=== PATIENT | male | born 1990 | race Caucasian/White ===

== ENCOUNTER 2018-02-28 22:35 | Inpatient (IN) | payer SELFPAY ==
[2018-02-28 23:29] LABS: Absolute Lymphocytes (CBC) 1.6 K/uL (0.7-4.9); Absolute Monocytes 0.8 K/uL (0.1-1.3); Absolute Neutrophil 8.3 K/uL (1.8-8.0); Basophils % 0.5 % (0-1.3); Eosinophils % 0.9 % (0-4.4); Hematocrit 45.8 % (39.6-49.0); Lymphocytes % 14.8 % (15.3-44.8); MCH 30.1 pg (27.0-35.0); MCV 89.4 fL (80-100); MPV 8.6 fL (7.6-11.3); Monocytes % 7.5 % (3.3-12.3); RBC Red Blood Cell Count 5.12 M/uL (4.33-5.43)
[2018-02-28 23:33] LABS: Protime INR 1.19
[2018-02-28 23:35] LABS: Bicarbonate 27 mEq/L (21-31); Glucose Level 123 mg/dL (65-120); Potassium 3.4 mEq/L (3.6-5.0); Sodium Level 141 mEq/L (135-145)
[2018-02-28] MEDS ORDERED: NA CHLORIDE 0.9% 1,000 ML ONE (23:38)
[2018-02-28] MEDS ORDERED: ONDANSETRON 4 MG/2 ML VIAL ONE (23:38)
[2018-02-28] MEDS ORDERED: PANTOPRAZOLE 40 MG INJ ONE (23:38)
[2018-02-28 23:41] LABS: ALT/SGPT 13 IU/L (10-60); AST/SGOT 17 IU/L (10-42); Albumin 4.7 g/dL (3.2-5.5); Alkaline Phosphatase 76 IU/L (42-121); BUN Blood Urea Nitrogen 11 mg/dL (6-20); Bilirubin Direct 0.1 mg/dL (0-0.2); Bilirubin Total 0.8 mg/dL (0.3-1.2); Magnesium 1.8 mg/dL (1.8-2.5)
--- NOTE | 2018-03-01 02:07 | EDPHYS ---
Physician Documentation [facility] Name: Todd Cortez Age: 27 yrs Sex: Male : 1990 Arrival Date: 02/28/2018 Time: 22:38 Bed 13 Private MD: ED Physician Saurabh Roman HPI: 02/28 23:00 This 27 yrs old Male presents to ER via Ambulatory with complaints of cp SPITTING BLOOD. 23:00 The patient or guardian reports cough, that is constant, hemoptysis. cp 23:00 Onset: The symptoms/episode began/occurred suddenly, just prior to arrival. Associated cp signs and symptoms: Pertinent positives: shortness of breath, chest tightness. Severity of symptoms: in the emergency department the symptoms have improved mildly. The patient has not experienced similar symptoms in the past. Historical: - Allergies: 22:51 No Known Allergies; bb - Home Meds: 22:51 None [Active]; bb - PMHx: 22:51 None; bb - PSHx: 22:51 None; bb - Immunization history:: Adult Immunizations not up to date. - Social history:: Smoking status: Patient/guardian denies using tobacco, Patient/guardian denies using alcohol, street drugs. ROS: 23:05 Constitutional: Negative for body aches, chills, fever, poor PO intake, weight loss. cp 23:05 Eyes: Negative for injury, pain, redness, and discharge. cp 23:05 ENT: Negative for drainage from ear(s), ear pain, sore throat, difficulty swallowing, difficulty handling secretions. 23:05 Neck: Negative for pain with movement, pain at rest, stiffness. 23:05 Cardiovascular: Positive for chest tightness, Negative for edema, palpitations. 23:05 Respiratory: Positive for cough, hemoptysis, shortness of breath. 23:05 Abdomen/GI: Negative for abdominal pain, nausea and vomiting, black/tarry stool, rectal bleeding. 23:05 Back: Negative for pain at rest, pain with movement, radiated pain. 23:05 Skin: Negative for cellulitis, rash. 23:05 Neuro: Negative for altered mental status, dizziness, headache, syncope, weakness. 23:05 All other systems are negative. Exam: 23:12 Constitutional: The patient appears in no acute distress, alert, awake, cp non-diaphoretic, non-toxic, well developed, well nourished. 23:12 Head/Face: Normocephalic, atraumatic. Eyes: Pupils equal round and reactive to light, cp extra-ocular motions intact. Lids and lashes normal. Conjunctiva and sclera are non-icteric and not injected. Cornea within normal limits. Periorbital areas with no swelling, redness, or edema. ENT: Nares patent. No nasal discharge, no septal abnormalities noted. Tympanic membranes are normal and external auditory canals are clear. Oropharynx with no redness, swelling, or masses, exudates, or evidence of obstruction, uvula midline. Mucous membranes moist. Neck: Trachea midline, no thyromegaly or masses palpated, and no cervical lymphadenopathy. Supple, full range of motion without nuchal rigidity, or vertebral point tenderness. No Meningismus. Chest/axilla: Normal chest wall appearance and motion. Nontender with no deformity. No lesions are appreciated. 23:12 Cardiovascular: Rate: normal, Rhythm: regular, Pulses: Pulses are 2+ in right radial artery and left radial artery. Edema: is not appreciated, JVD: is not appreciated. 23:12 Respiratory: the patient does not display signs of respiratory distress, Respirations: normal, no use of accessory muscles, no retractions, no splinting, no tachypnea, labored breathing, is not present, Breath sounds: are clear throughout, no decreased breath sounds, no stridor, no wheezing. 23:12 Abdomen/GI: Inspection: abdomen appears normal, Bowel sounds: active, all quadrants, Palpation: abdomen is soft and non-tender, in all quadrants, rebound tenderness, is not appreciated, voluntary guarding, is not appreciated, involuntary guarding, is not appreciated. 23:12 Back: pain, is absent, ROM is normal. 23:12 Skin: cellulitis, is not appreciated, no rash present. 23:12 Neuro: Orientation: to person, place \T\ time. Mentation: is normal, Cerebellar function: is grossly normal, Motor: moves all fours, strength is normal, Sensation: no obvious gross deficits. Vital Signs: 22:51 BP 148 / 97; Pulse 92; Resp 20 S; Temp 98(O); Pulse Ox 93% on R/A; Weight 54.43 kg (R); bb Height 5 ft. 6 in. (167.64 cm) (R); Pain 0/10; 03/01 00:13 BP 121 / 74; Pulse 72; Resp 17 S; Pulse Ox 97% on R/A; jd3 01:07 BP 128 / 72; Pulse 70; Resp 17 S; Pulse Ox 97% on R/A; Pain 0/10; jd3 02:04 BP 133 / 76; Pulse 87; Resp 17 S; Pulse Ox 98% on R/A; jd3 03:40 BP 129 / 80; Pulse 81; Resp 17 S; Pulse Ox 99% on R/A; jd3 02/28 22:51 Body Mass Index 19.37 (54.43 kg, 167.64 cm) bb MDM: 02/28 22:52 Patient medically screened. cp 23:30 Differential diagnosis: bronchitis, URI, pulmonary mass, pulmonary embolism. cp 03/01 02:00 ED course: vRad report negative for pulmonary embolism. Noted innumerable scattered cp pulmonary masses and nodules. 02:02 Data reviewed: vital signs, nurses notes, lab test result(s), EKG, radiologic studies, cp CT scan, plain films. 02:02 Test interpretation: by ED physician or midlevel provider: ECG, plain radiologic cp studies. 02/28 23:00 Order name: Basic Metabolic Panel; Complete Time: 00:08 cp 03/01 01:06 Interpretation: Normal except: K 3.4; GLUC 123. 02/28 23:00 Order name: CBC with Diff; Complete Time: 00:08 cp 03/01 00:08 Interpretation: Normal except: CARLOS% 76.3; LYM% 14.8; NEUT A 8.3. 02/28 23:00 Order name: LFT's; Complete Time: 00:08 cp 03/01 01:06 Interpretation: Normal except: TP 9.0; GLOB 4.3. cp 02/28 23:00 Order name: Magnesium; Complete Time: 00:08 cp 02/28 23:00 Order name: PT-INR; Complete Time: 00:08 cp 03/01 01:06 Interpretation: PT 14.1; Reviewed. 02/28 23:00 Order name: Ptt, Activated; Complete Time: 00:08 cp 02/28 22:54 Order name: XRAY Chest (1 view) 02/28 23:00 Order name: EKG; Complete Time: 23:01 cp 02/28 23:00 Order name: Cardiac monitoring; Complete Time: 23:10 cp 02/28 23:00 Order name: Type And Screen; Complete Time: 01:06 cp 03/01 01:06 Interpretation: Reviewed. cp 03/01 00:11 Order name: CT Chest For PE Angio cp 02/28 23:00 Order name: EKG - Nurse/Tech; Complete Time: 23:10 cp 02/28 23:00 Order name: IV Saline Lock; Complete Time: 23:10 cp 02/28 23:00 Order name: Labs collected and sent; Complete Time: 23:10 cp 02/28 23:00 Order name: O2 Per Protocol; Complete Time: 23:10 cp 02/28 23:00 Order name: O2 Sat Monitoring; Complete Time: 23:10 cp Administered Medications: 02/28 23:26 Drug: NS 0.9% 1000 ml Route: IV; Rate: 1 bolus; Site: right antecubital; jd3 03/01 00:20 Follow up: Response: No adverse reaction; IV Status: Completed infusion; IV Intake: jd3 1000ml 02/28 23:26 Drug: ProTONIX 40 mg Route: IVP; Site: right antecubital; jd3 03/01 00:20 Follow up: Response: No adverse reaction [facility] 02/28 23:26 Drug: Zofran 4 mg Route: IVP; Site: right antecubital; jd3 03/01 00:20 Follow up: Response: No adverse reaction j Disposition: 05:18 Co-signature as Attending Physician, Saurabh Roman MD. pkze Disposition: 03/01/18 02:07 Hospitalization ordered by Robb Macario for Observation. Preliminary diagnosis are Malignant neoplasm of bronchus and lung - Multiple, bilateral, Hemoptysis. - Bed requested for Telemetry/MedSurg (observation). - Status is Observation. jd3 - Condition is Stable. - Problem is new. - Symptoms have improved. UTI on Admission? No Signatures: Dispatcher [employer] EDMS Saurabh Roman MD MD pkLena Alarcon, RN RN Alexander Couch PA PA cp Garcia, Cindy, RN RN cg Davies, Jonathon, RN RN jd3
--- NOTE | 2018-03-01 02:07 | ER ---
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 Transition of care: patient was not received from another setting of care. Onset of symptoms was February 28, 2018. Care prior to arrival: None. 22:49 Method Of Arrival: Ambulatory bb 22:49 Acuity: LIDIA 2 bb Historical: - Allergies: 22:51 No Known Allergies; bb - Home Meds: 22:51 None [Active]; bb - PMHx: 22:51 None; bb - PSHx: 22:51 None; bb - Immunization history:: Adult Immunizations not up to date. - Social history:: Smoking status: Patient/guardian denies using tobacco, Patient/guardian denies using alcohol, street drugs. Screenin:51 Abuse screen: Denies threats or abuse. Denies injuries from another. Nutritional lp1 screening: No deficits noted. Tuberculosis screening: No symptoms or risk factors identified. Fall Risk None identified. Assessment: 23:15 General: Appears in no apparent distress. Behavior is calm, cooperative. Pain: Denies lp1 pain. Neuro: Level of Consciousness is awake, alert, obeys commands, Oriented to person, place, time, situation. Cardiovascular: Capillary refill < 3 seconds in bilateral fingers Patient's skin is warm and dry. Rhythm is sinus rhythm. Respiratory: Airway is patent Trachea midline Respiratory effort is even, Respiratory pattern is regular, symmetrical, Breath sounds are clear bilaterally. GI: Abdomen is flat. : No signs and/or symptoms were reported regarding the genitourinary system. EENT: Throat is clear with gag reflex present. Derm: Skin is pink, warm \T\ dry. Musculoskeletal: Circulation, motion, and sensation intact. 03/01 00:13 Reassessment: Patient appears in no apparent distress at this time. Patient and/or jd3 family updated on plan of care and expected duration. Pain level reassessed. Patient is alert, oriented x 3, equal unlabored respirations, skin warm/dry/pink. pt sitting in bed talking with family, even and unlabored respirations, pt reported feeling better Patient states feeling better. 01:08 Reassessment: Patient appears in no apparent distress at this time. Patient and/or jd3 family updated on plan of care and expected duration. Pain level reassessed. Patient is alert, oriented x 3, equal unlabored respirations, skin warm/dry/pink. 02:04 Reassessment: Patient appears in no apparent distress at this time. Patient and/or jd3 family updated on plan of care and expected duration. Pain level reassessed. Patient is alert, oriented x 3, equal unlabored respirations, skin warm/dry/pink. 03:05 Reassessment: Patient appears in no apparent distress at this time. Patient and/or jd3 family updated on plan of care and expected duration. Pain level reassessed. Patient is alert, oriented x 3, equal unlabored respirations, skin warm/dry/pink. Vital Signs: 02/28 22:51 BP 148 / 97; Pulse 92; Resp 20 S; Temp 98(O); Pulse Ox 93% on R/A; Weight 54.43 kg (R); bb Height 5 ft. 6 in. (167.64 cm) (R); Pain 0/10; 03/01 00:13 BP 121 / 74; Pulse 72; Resp 17 S; Pulse Ox 97% on R/A; jd3 01:07 BP 128 / 72; Pulse 70; Resp 17 S; Pulse Ox 97% on R/A; Pain 0/10; jd3 02:04 BP 133 / 76; Pulse 87; Resp 17 S; Pulse Ox 98% on R/A; jd3 03:40 BP 129 / 80; Pulse 81; Resp 17 S; Pulse Ox 99% on R/A; jd3 02/28 22:51 Body Mass Index 19.37 (54.43 kg, 167.64 cm) bb ED Course: 02/28 22:38 Patient arrived in ED. al2 22:50 Triage completed. bb 22:51 Arm band placed on Patient placed in an exam room, on a stretcher, on monitor technician, bb on pulse oximetry. EKG completed in triage. Results shown to MD. Family accompanied patient. 22:52 Alexander Vaz PA is PHCP. cp 22:52 Saurabh Roman MD is Attending Physician. cp 22:54 Alisa Castro, RN is Primary Nurse. lp1 23:11 Inserted saline lock: 18 gauge in right in left antecubital area, using aseptic mw1 technique. 23:14 X-ray completed. Portable x-ray completed in exam room. Patient tolerated procedure la2 well. 23:15 XRAY Chest (1 view) In Process Unspecified. EDMS 23:15 Patient has correct armband on for positive identification. Placed in gown. Bed in low lp1 position. monitor technician on. Pulse ox on. NIBP on. 04 00:[address] via wheelchair. bq 00:52 CT completed. Patient tolerated procedure well. Patient moved back from CT. bq 01:16 CT Chest For PE Angio In Process Unspecified. EDMS 02:04 Robb Macario MD is Hospitalizing Provider. cp 03:41 No provider procedures requiring assistance completed. Patient admitted, IV remains in jd3 place. Administered Medications: 02/28 23:26 Drug: NS 0.9% 1000 ml Route: IV; Rate: 1 bolus; Site: right antecubital; jd3 03/01 00:20 Follow up: Response: No adverse reaction; IV Status: Completed infusion; IV Intake: jd3 1000ml 02/28 23:26 Drug: ProTONIX 40 mg Route: IVP; Site: right antecubital; jd3 03/01 00:20 Follow up: Response: No adverse reaction jd3 02/28 23:26 Drug: Zofran 4 mg Route: IVP; Site: right antecubital; jd3 03/01 00:20 Follow up: Response: No adverse reaction jd3 Intake: 00:20 IV: 1000ml; Total: 1000ml. jd3 Outcome: 02:07 Decision to Hospitalize by Provider. cp 03:50 Admitted to Med/surg accompanied by nurse, via wheelchair, room 208, with chart, Report jd3 called to Audra ROBERTS 03:50 Condition: stable 03:50 Instructed on the need for admit, Demonstrated understanding of instructions. 03:55 Patient left the ED. jd3 Signatures: Dispatcher [employer] EDMS Dianna Roldan Brenda, RN RN bb Alisa Castro, RN RN lp1 Alexander Vaz PA PA cp Waits, Phillip mw1 Celeste Wick2 Jerman Pearce RN RN jd3 Kamini, María Elena moreno2
[2018-03-01] MEDS ORDERED: ONDANSETRON 4 MG/2 ML VIAL IV PRN (02:45)
[2018-03-01] MEDS ORDERED: MORPHINE 4 MG/ML SYR IV PRN ×2 (02:45→07:48)
[2018-03-01] MEDS ORDERED: NA CHLORIDE 0.9% 1,000 ML IV SCH (03:00)
[2018-03-01] MEDS ORDERED: ALBUTEROL 2.5 MG/3 ML NEB SOL NEB SCH (03:00)
[2018-03-01 05:46] LABS: Absolute Lymphocytes (CBC) 1.4 K/uL (0.7-4.9); Absolute Monocytes 0.8 K/uL (0.1-1.3); Absolute Neutrophil 7.5 K/uL (1.8-8.0); Basophils % 0.2 % (0-1.3); Eosinophils % 0.3 % (0-4.4); Hematocrit 40.3 % (39.6-49.0); Lymphocytes % 14.4 % (15.3-44.8); MCH 30.3 pg (27.0-35.0); MCV 88.7 fL (80-100); MPV 8.5 fL (7.6-11.3); Monocytes % 8.3 % (3.3-12.3); RBC Red Blood Cell Count 4.54 M/uL (4.33-5.43)
[2018-03-01 06:26] VITALS: BMI 19.3
--- NOTE | 2018-03-01 07:28 | P.HP ---
Certification for Inpatient Patient admitted to: Inpatient With expected LOS: >2 Midnights Patient will require the following post-hospital care: None Practitioner: I am a practitioner with admitting privileges, knowledge of patient current condition, hospital course, and medical plan of care. Services: Services provided to patient in accordance with Admission requirements found in Title 42 Section 412.3 of the Code of Federal Regulations Patient History Date of Service: 03/01/18 Reason for admission: Metastatic lung cancer History of Present Illness: Patient is a 27-year-old gentleman who was visiting [facility]. He started having persisting cough and had a mild to since. This occurred once again and he asked his brother to bring him into the hospital. Patient denies any medical issues. He has not lost weight. He does not have a poor appetite. He denies having any symptoms of weakness. On arrival to the emergency room patient was worked up in had a CT of the chest performed. This revealed metastatic lung disease. Unable the diagnose the primary site. Will do a CT of the abdomen and pelvis and further evaluate. Will give pulmonary consultation as patient may need biopsy. Allergies No Known Allergies Allergy (Verified 03/01/18 04:06) Home Medications: NK [No Home Meds] 03/01/18 - Past Medical/Surgical History Diabetic: No -: More with cervical spine disease -: none - Family History Mother Notes: none Father Medical History: Diabetes - Social History Smoking Status: Never smoker Alcohol use: No CD- Drugs: No Caffeine use: Yes Place of Residence: Home Review of Systems 10-point ROS is otherwise unremarkable Physical Examination - Vital Signs Temperature: 98 F Blood Pressure: 129/80 Pulse: 81 Respirations: 17 Pulse Ox (%): 98 - Physical Exam General: Alert, In no apparent distress, Oriented x3 HEENT: Atraumatic, PERRLA, Mucous membr. moist/pink, EOMI, Sclerae nonicteric Neck: Supple, 2+ carotid pulse no bruit, No LAD, Without JVD or thyroid abnormality Respiratory: Clear to auscultation bilaterally, Normal air movement Cardiovascular: Regular rate/rhythm, Normal S1 S2, No murmurs Gastrointestinal: Normal bowel sounds, Soft and benign, Non-distended, No tenderness Musculoskeletal: No clubbing, No swelling, No tenderness Integumentary: No rashes Neurological: Normal gait, Normal speech, Normal strength at 5/5 x4 extr, Normal tone, Sensation intact, Cranial nerves 3-12 intact, Normal affect Lymphatics: No axilla or inguinal lymphadenopathy - Studies Laboratory Data (last 24 hrs) 02/28/18 23:00: PT 14.1 H, INR 1.19, APTT 30.4 02/28/18 23:00: WBC 10.9, Hgb 15.4, Hct 45.8, Plt Count 354 02/28/18 23:00: Sodium 141, Potassium 3.4 L, BUN 11, Creatinine 0.93, Glucose 123 H, Magnesium 1.8, Total Bilirubin 0.8, AST 17, ALT 13, Alkaline Phosphatase 76 Assessment & Plan - Problems (Diagnosis) (1) Metastatic cancer to lung of unknown cell type Current Visit: Yes Status: Acute (2) Hemoptysis Current Visit: Yes Status: Acute - Plan Plan: 1. CT abdomen pelvis 2. Pulmonary consultation 3. H&H 4. Monitor labs closely 5. Strict blood pressure and blood sugar control 6. GI and DVT prophylaxis Discharge Plan: Home Plan to discharge in: Greater than 2 days - Advance Directives Does patient have a Living Will: No Does patient have a Durable POA for Healthcare: No - Code Status/Comfort Care Code Status Assessed: Yes Code Status: Full Code Critical Care: No Time Spent Managing PTS Care (In Minutes): 50
[2018-03-01] MEDS ORDERED: IPRATROPIUM BROM 0.5MG/2.5ML NEB SCH (08:00)
[2018-03-01 08:26] LABS: Urine Appearance CLEAR; Urine Bilirubin NEGATIVE (NEG); Urine Blood NEGATIVE (NEG); Urine Color YELLOW; Urine Glucose NEGATIVE (NEG); Urine Protein NEGATIVE (NEG); Urine Specific Gravity >=1.030 (1.005-1.030); Urine Urobilinogen 0.2 mg/dL (0.2-1.0)
[2018-03-01 08:38] LABS: Urine Microscopic Reflex NO UMIC
--- NOTE | 2018-03-01 08:50 | RAD REPORT ---
EXAM DESCRIPTION: CT - Chest For Pe Angio - 03/01/2018 1:16 am CLINICAL HISTORY: hemoptysis COMPARISON: None. TECHNIQUE: Dynamically enhanced axial 3 mm thick images of the chest were obtained during administra tion of <100> mL Isovue 370 IV contrast. Coronal and oblique reconstruction images were generated and reviewed. Exam utilizes a protocol for optimal evaluation of pulmonary arterial tree.A preliminary r eport was generated by [employer] [facility] and reviewed prior to this dictation All CT scans are performed using dose optimization technique as appropriate and may include automated exposure control or mA/KV adjustment according to patient size. FINDINGS: A pulmonary embolus is not seen. A thoracic aortic aneurysm is not noted. A pleural effusion is not seen. A pericardial effusion is not seen. There are many bilateral pulmonary nodules varying in size from a few millimeters to 3.1 centimeters. A small amount of debris is present within a right lower lobe bronchus. Several anterior mediastinal lymph nodes are present measuring up to 2 centimeter short axis. Mild hi lar lymphadenopathy is present. IMPRESSION: Negative for a pulmonary embolism. Multiple, bilateral pulmonary nodules probably representing metastatic disease. The primary may be te sticle, bowel or kidneys. Lymphoma is another consideration Mediastinal lymphadenopathy likely represents additional disease. There is also mild hilar lymphadeno isabel
[2018-03-01] MEDS ORDERED: CEFTRIAXONE 1 GM/NS 50 ML 1 GM/50 ML BAG IV SCH (09:00)
[2018-03-01] MEDS ORDERED: CEFTRIAXONE/SWI 1gm 1 GM/10 ML SYR IV SCH (09:00)
--- NOTE | 2018-03-01 09:30 | RAD REPORT ---
EXAM DESCRIPTION: Dominik Single View02/28/2018 11:15 pm CLINICAL HISTORY: cough COMPARISON: none FINDINGS: Multiple, bilateral pulmonary nodules are present. The heart is normal size IMPRESSION: Multiple, bilateral pulmonary nodules may represent metastatic disease
--- NOTE | 2018-03-01 10:51 | P.CNS ---
Date of Consult: 03/01/18 Reason for Consult: Hemoptysis normal CT scan Chief Complaint: Hemoptysis History of Present Illness: Patient is 27 years of age previously healthy no history of any medical problems admitted with sudden onset of hemoptysis he has some associated shortness of breath chest tightness was a found to have bilateral opacities on his CT scan denies any GI or complaints no history of fever weight loss chest pain patient is never smoked he works in the construction industry Allergies No Known Allergies Allergy (Verified 03/01/18 04:06) Home Medications: NK [No Home Meds] 03/01/18 - Past Medical/Surgical History Diabetic: No -: More with cervical spine disease -: none - Family History Mother Notes: none Father Medical History: Diabetes - Social History Alcohol use: No CD- Drugs: No Caffeine use: Yes Place of Residence: Home Review of Systems 10-point ROS is otherwise unremarkable Physical Examination Temp Pulse Resp BP Pulse Ox 98.3 F 96 H 16 114/56 L 96 03/01/18 08:00 03/01/18 08:00 03/01/18 08:00 03/01/18 08:00 03/01/18 08:00 General: Alert, In no apparent distress, Oriented x3 HEENT: Atraumatic Neck: Supple, JVD not distended Respiratory: Clear to auscultation bilaterally Cardiovascular: No edema, Regular rate/rhythm Gastrointestinal: Normal bowel sounds, Soft and benign Musculoskeletal: No clubbing Integumentary: No rashes, No breakdown Laboratory Data (last 24 hrs) 02/28/18 23:00: PT 14.1 H, INR 1.19, APTT 30.4 02/28/18 23:00: WBC 10.9, Hgb 15.4, Hct 45.8, Plt Count 354 02/28/18 23:00: Sodium 141, Potassium 3.4 L, BUN 11, Creatinine 0.93, Glucose 123 H, Magnesium 1.8, Total Bilirubin 0.8, AST 17, ALT 13, Alkaline Phosphatase 76 - Problems (1) Hemoptysis Current Visit: Yes Status: Acute Plan: Patient is a 27-year-old man admitted with sudden onset of hemoptysis no prior medical history of proceeding symptoms of fever or weight loss basically denies any other complaints this occurred rather sudden in onset CT scan shows bilateral opacities chemistries and CBC are all unremarkable he denies any GI complaints urinalysis is also negative if this cancer the most likely source his embryonic border ECG alpha-fetoprotein CT scan of the abdomen pelvis is pending there is no obvious post plan to do a bronchoscopy discussed with the patient risks and benefits
--- NOTE | 2018-03-01 12:43 | EKG ---
Test Date: 2018-02-28 Test Time: 22:49:48 Informatics Application Analyst: WYATT MEASUREMENT RESULTS: Intervals: Rate: 86 MD: 128 QRSD: 86 QT: 352 QTc: 421 [place]: P: 81 MD: 128 QRS: 85 T: 48 INTERPRETIVE STATEMENTS: Normal sinus rhythm Normal ECG No previous ECG available for comparison Electronically Signed On 03-01-18 12:42:38 CDT by Lam Pagan
[2018-03-02 05:17] LABS: Absolute Lymphocytes (CBC) 1.7 K/uL (0.7-4.9); Absolute Monocytes 0.8 K/uL (0.1-1.3); Basophils % 0.4 % (0-1.3); Eosinophils % 3.7 % (0-4.4); Hematocrit 41.3 % (39.6-49.0); Lymphocytes % 21.3 % (15.3-44.8); MCH 30.1 pg (27.0-35.0); MCV 89.6 fL (80-100); MPV 8.5 fL (7.6-11.3); Monocytes % 10.2 % (3.3-12.3); RBC Red Blood Cell Count 4.61 M/uL (4.33-5.43)
[2018-03-02] MEDS ORDERED: ALBUTEROL 2.5 MG/3 ML NEB SOL NEB PRN (08:10)
--- NOTE | 2018-03-02 10:05 | RAD REPORT ---
EXAM DESCRIPTION: CT - Abdomen Pelvis W Contrast - 03/02/2018 9:51 am CLINICAL HISTORY: Metastatic lung carcinoma, unknown primary COMPARISON: CT chest March 01 TECHNIQUE: Biphasic, helical CT imaging of the abdomen and pelvis was performed following 100 ml non -ionic IV contrast. Oral contrast was given. All CT scans are performed using dose optimization technique as appropriate and may include automated exposure control or mA/KV adjustment according to patient size. FINDINGS: Multiple lung base pulmonary nodules are present detailed on separate prior day CT chest r eport. The liver, spleen, and pancreas show no suspicious findings. Gallbladder and biliary tree are also wi thout suspicious finding. Symmetric renal function is seen with no hydronephrosis or suspicious renal mass. No dilated bowel loops or bowel wall thickening. No bowel mass or acute GI process identifiable. Narr owing in the sigmoid colon is believed to be a peristalsis artifact. No free air, free fluid or infla mmatory stranding. No hernia, mass or bulky lymphadenopathy. The urinary bladder is without signific ant finding. No adrenal abnormality. Testicles are only partially imaged. CT examination is not adequ ate for exclusion of a seminoma or testicular primary mass. No suspicious bony findings. IMPRESSION: No mass, lymphadenopathy or other suspicious findings of the abdomen or pelvis. Sigmoid peristalsis artifact is seen without a primary GI process identifiable. Testicles are only partially imaged on this examination and this examination is not adequate for excl usion of seminoma or other testicle primary mass.
[2018-03-02] MEDS ORDERED: GLYCOPYRROLATE 0.2 MG/ML SYR ONE (11:13)
[2018-03-02] MEDS ORDERED: Phenylephrine HCl 10 MG/ML 1 ML VIAL ONE (11:13)
[2018-03-02] MEDS ORDERED: LIDOCAINE 4% TOP SOLUTION ONE (11:13)
[2018-03-02] MEDS ORDERED: LIDOCAINE VISCOUS 2% SOLN 15 ML UDC ONE (11:15)
[2018-03-02] MEDS ORDERED: LIDOCAINE 4% TOP SOLUTION TOP ONE ×2 (11:40→12:00)
[2018-03-02] MEDS ORDERED: Ringers Lactate 1,000 ML IV ONE (11:54)
[2018-03-02] MEDS ORDERED: Phenylephrine HCl 10 MG/ML 1 ML VIAL IH ONE (12:00)
[2018-03-02] MEDS ORDERED: GLYCOPYRROLATE 0.2 MG/ML SYR IV ONE (12:00)
--- NOTE | 2018-03-02 12:07 | P.PN ---
Subjective Date of Service: 03/02/18 Primary Care Provider: Dr. Manzo Chief Complaint: Hemoptysis Subjective: Doing well Physical Examination - Vital Signs Temperature: 99 F Blood Pressure: 135/72 Pulse: 65 Respirations: 16 Pulse Ox (%): 96 - Physical Exam General: Alert, In no apparent distress, Oriented x3, Cooperative HEENT: Atraumatic, Mucous membr. moist/pink Neck: Supple Respiratory: Clear to auscultation bilaterally, Normal air movement Cardiovascular: Normal pulses, Regular rate/rhythm Gastrointestinal: Normal bowel sounds, Soft and benign, Non-distended, No tenderness, No masses, No rebound, No guarding Musculoskeletal: No erythema, No tenderness, No warmth Integumentary: No tenderness/swelling, No erythema, No warmth, No cyanosis Neurological: Normal speech, Normal strength at 5/5 x4 extr, Normal tone, Normal affect Lymphatics: No axilla or inguinal lymphadenopathy External genitalia: No edema, No lesions, No masses, Non-tender - Studies Medications List Reviewed: Yes Assessment & Plan - Problems (Diagnosis) (1) Hemoptysis Onset Date: 03/02/18 Current Visit: Yes Status: Acute Plan: Patient no longer with hemopytosis. Patient will have bronchoscopy today. Will discuss case further with pulmonology. (2) Metastatic cancer to lung of unknown cell type Onset Date: 03/02/18 Current Visit: Yes Status: Suspected Plan: Patient with multiple nodules to the lung. Etiology unknown. Patient to have bronchoscopy today. (3) Pulmonary nodules Current Visit: Yes Status: Acute Plan: Continue with above plan of care. Suspect metastatic disease. Primary unknown. (4) Mediastinal adenopathy Current Visit: Yes Status: Acute Plan: Continue with above plan of care. Will discuss further with pulmonology. Discharge Plan: Home Plan to discharge in: 24 Hours Time Spent Managing Pts Care (In Minutes): 55
[2018-03-02] MEDS ORDERED: LIDOCAINE 1% MPF 30 ML VIAL SQ ONE (12:30)
[2018-03-02] MEDS ORDERED: PROPOFOL 200 MG/20 ML VIAL IV ONE (12:33)
[2018-03-02] MEDS ORDERED: LIDOCAINE 1% MPF 5 ML VIAL ONE (12:33)
--- NOTE | 2018-03-02 12:36 | P.OP ---
Date of Service: 03/02/18 (Endoscopy transbronchial biopsy and BAL) Findings and Operative Technique Patient is 27 years of age admitted to this hospital with hemoptysis acute onset no other preceding complaints nose no systemic complaints no past medical history Iqra CT scan shows bilateral lung masses hence the reason for bronchoscopy After obtaining informed consent from the patient he was premedicated by anesthesia Finding normal vocal cords normal trachea reading was a visible particular in the right lower lobe superior segment there was a clot multiple biopsies were taken from the right lower lobe superior segment including BAL patient has slight episode of desaturation postoperative chest x-ray has been ordered Specimens sent stat for analysis path and micro
--- NOTE | 2018-03-02 13:00 | RAD REPORT ---
EXAM DESCRIPTION: RAD - FLUORO-GUIDE FOR BRONCH UPT1HR - 03/02/2018 12:53 pm FINDINGS: Right chest fluoroscopy performed. Multiple portable C-arm views were obtained during fluoroscopic assisted bronchoscopic guided biopsy. No suspicious or unexpected finding.
--- NOTE | 2018-03-02 13:55 | RAD REPORT ---
EXAM DESCRIPTION: RAD - Chest Single View - 03/02/2018 1:44 pm CLINICAL HISTORY: Status post bronchoscopy. COMPARISON: 02/28/2018 FINDINGS: Portable technique limits examination quality. Airspace opacity is present in both lung bases, greater on the right. Most likely, this is related to atelectasis or aspiration. If the patient demonstrates hemoptysis, pulmonary hemorrhage may also be considered. No postprocedure pneumothorax. The heart is upper limit normal size.
[2018-03-02] MEDS: ACETAMINOPHEN 500 MG TAB PO PRN (17:35)
[2018-03-02] MEDS ORDERED: IBUPROFEN 400 MG TAB PO PRN (18:33)
[2018-03-03 05:21] LABS: Absolute Lymphocytes (CBC) 1.1 K/uL (0.7-4.9); Absolute Neutrophil 9.4 K/uL (1.8-8.0); Basophils % 0.3 % (0-1.3); Eosinophils % 3.5 % (0-4.4); Hematocrit 39.4 % (39.6-49.0); Lymphocytes % 9.4 % (15.3-44.8); MCH 30.3 pg (27.0-35.0); MCV 89.1 fL (80-100); MPV 8.6 fL (7.6-11.3); Monocytes % 8.2 % (3.3-12.3); RBC Red Blood Cell Count 4.42 M/uL (4.33-5.43)
[2018-03-03 05:57] LABS: BUN Blood Urea Nitrogen 10 mg/dL (6-20); Bicarbonate 27 mEq/L (21-31); Glucose Level 82 mg/dL (65-120); Magnesium 1.9 mg/dL (1.8-2.5); Potassium 4.1 mEq/L (3.6-5.0); Sodium Level 139 mEq/L (135-145)
[2018-03-03 11:19] LABS: Alpha Fetoprotein-Tumor Marker 1.8 ng/mL (<6.1)
--- NOTE | 2018-03-03 16:03 | P.PN ---
Subjective Date of Service: 03/03/18 Primary Care Provider: Dr. Manzo Chief Complaint: Hemoptysis Subjective: Doing well Physical Examination - Vital Signs Temperature: 100.1 F Blood Pressure: 104/63 Pulse: 80 Respirations: 20 Pulse Ox (%): 96 - Physical Exam General: Alert, In no apparent distress, Oriented x3, Cooperative HEENT: Atraumatic, Mucous membr. moist/pink Neck: Supple, No Thyromegaly Respiratory: Clear to auscultation bilaterally, Normal air movement Cardiovascular: Normal pulses, Regular rate/rhythm Gastrointestinal: Normal bowel sounds, Soft and benign, Non-distended Musculoskeletal: No erythema, No tenderness, No warmth Integumentary: No erythema, No warmth, No cyanosis Neurological: Normal speech, Normal strength at 5/5 x4 extr, Normal tone, Normal affect Lymphatics: No axilla or inguinal lymphadenopathy - Studies Medications List Reviewed: Yes Assessment & Plan - Problems (Diagnosis) (1) Hemoptysis Onset Date: 03/02/18 Current Visit: Yes Status: Acute Plan: Patient status post bronchoscopy. Pathology reports inconclusive. Pulmonology recommends radiology assisted fine needle aspiration of lung mass to determine pathology. Will discuss with radiology to see if this can be done. Anticipate this to be done tomorrow. (2) Metastatic cancer to lung of unknown cell type Onset Date: 03/02/18 Current Visit: Yes Status: Suspected Plan: Patient with multiple nodules to the lung. Etiology unknown. Continue with above plan of care. (3) Pulmonary nodules Current Visit: Yes Status: Acute Plan: Continue with above plan of care. Suspect metastatic disease. Primary unknown. (4) Mediastinal adenopathy Current Visit: Yes Status: Acute Plan: Continue with above plan of care. Discharge Plan: Home Plan to discharge in: 48 Hours Time Spent Managing Pts Care (In Minutes): 55
[2018-03-03] MEDS: ACETAMINOPHEN 500 MG TAB PO PRN (16:39)
[2018-03-04 05:13] LABS: Absolute Lymphocytes (CBC) 1.5 K/uL (0.7-4.9); Basophils % 0.3 % (0-1.3); Eosinophils % 5.1 % (0-4.4); Hematocrit 40.3 % (39.6-49.0); Lymphocytes % 14.7 % (15.3-44.8); MCH 30.6 pg (27.0-35.0); MPV 8.3 fL (7.6-11.3); Monocytes % 9.7 % (3.3-12.3); RBC Red Blood Cell Count 4.58 M/uL (4.33-5.43)
[2018-03-04 05:39] LABS: BUN Blood Urea Nitrogen 11 mg/dL (6-20); Bicarbonate 29 mEq/L (21-31); Glucose Level 97 mg/dL (65-120); Sodium Level 138 mEq/L (135-145)
--- NOTE | 2018-03-04 08:56 | P.PN ---
Subjective Date of Service: 03/04/18 Primary Care Provider: Dr. Manzo Chief Complaint: Hemoptysis Subjective: Doing well Physical Examination - Vital Signs Temperature: 100.0 F Blood Pressure: 105/65 Pulse: 74 Respirations: 20 Pulse Ox (%): 96 - Physical Exam General: Alert, In no apparent distress, Oriented x3, Cooperative HEENT: Atraumatic Neck: Supple Respiratory: Clear to auscultation bilaterally, Normal air movement Cardiovascular: Normal pulses, Regular rate/rhythm Gastrointestinal: Normal bowel sounds, Soft and benign, Non-distended, No tenderness, No masses, No rebound, No guarding Musculoskeletal: No erythema, No tenderness, No warmth Integumentary: No tenderness/swelling, No erythema, No warmth, No cyanosis Neurological: Normal speech, Normal strength at 5/5 x4 extr, Normal tone, Normal affect - Studies Medications List Reviewed: Yes Assessment & Plan - Problems (Diagnosis) (1) Hemoptysis Onset Date: 03/02/18 Current Visit: Yes Status: Acute Plan: Patient status post bronchoscopy. Pathology reports inconclusive. Pulmonology recommends radiology assisted fine needle aspiration of lung mass to determine pathology. This will be done today. Risks and benefits addressed. (2) Metastatic cancer to lung of unknown cell type Onset Date: 03/02/18 Current Visit: Yes Status: Suspected Plan: Patient with multiple nodules to the lung. Etiology unknown. Continue with above plan of care. (3) Pulmonary nodules Current Visit: Yes Status: Acute Plan: Continue with above plan of care. Suspect metastatic disease. Primary unknown. (4) Mediastinal adenopathy Current Visit: Yes Status: Acute Plan: Continue with above plan of care. Discharge Plan: Home Plan to discharge in: 24 Hours Time Spent Managing Pts Care (In Minutes): 55
[2018-03-04] MEDS ORDERED: NA CHLORIDE 0.9% 1,000 ML ONE ×2 (10:06→10:07)
[2018-03-04] MEDS ORDERED: DIPHENHYDRAMINE 50 MG/ML VIAL ONE (10:10)
[2018-03-04] MEDS ORDERED: FENTANYL CITR 100 MCG/2 ML ONE ×2 (10:11)
[2018-03-04] MEDS ORDERED: MIDAZOLAM HCL 2 MG/2 ML INJ ONE (10:11)
[2018-03-04] MEDS ORDERED: FLUMAZENIL 0.1 MG/ML (5 mL VIAL) IV ONE (10:11)
[2018-03-04] MEDS ORDERED: NALOXONE 0.4 MG/ML VIAL ONE (10:11)
[2018-03-04] MEDS ORDERED: HYDROCODONE/APAP 7.5/325 MG TAB PO PRN (12:26)
--- NOTE | 2018-03-04 12:43 | RAD REPORT ---
EXAM DESCRIPTION: CT - Lung Biopsy Perc w/CT - 03/04/2018 12:01 pm CLINICAL HISTORY: Lung nodule. COMPARISON: March 01, 2018. TECHNIQUE: The risks, benefits and alternatives to the procedure were explained to the patient and i nformed consent obtained. The patient was pre-medicated with 2 milligrams of Versed and 125 micrograms fentanyl intravenously. Vital signs were monitored by a nurse. Conscious sedation was performed. The patient was placed prone into the CT scanner. The skin and subcutaneous tissues were anesthetized with Lidocaine. Under CT guidance an 18-gauge needle was placed into the periphery of the 22 millim eter nodule within the left lower lobe. Through this a 19-gauge needle was placed and two 1 centimete r core specimens obtained and given to pathology. The post biopsy images do not demonstrate a pneumothorax. Ill-defined surrounding opacities within the left lower lobe represent a small amount of hemorrhage. IMPRESSION: 1. Two core biopsies of a left lower lobe nodule. 2. A pneumothorax is not present
--- NOTE | 2018-03-04 15:19 | RAD REPORT ---
[facility]AM DES[facility]04/2018 3:14 pm CLINICAL HISTORY: Left lung biopsy COMPARISON: March 02, 2018 FINDINGS: A pneumothorax is not present status post left lower lobe biopsy
[2018-03-05 05:11] LABS: Absolute Lymphocytes (CBC) 1.5 K/uL (0.7-4.9); Absolute Monocytes 0.8 K/uL (0.1-1.3); Absolute Neutrophil 6.8 K/uL (1.8-8.0); Basophils % 0.3 % (0-1.3); Eosinophils % 4.4 % (0-4.4); Hematocrit 39.7 % (39.6-49.0); Lymphocytes % 15.8 % (15.3-44.8); MCH 30.4 pg (27.0-35.0); MCV 88.4 fL (80-100); MPV 8.2 fL (7.6-11.3); Monocytes % 8.6 % (3.3-12.3); RBC Red Blood Cell Count 4.49 M/uL (4.33-5.43)
[2018-03-05 06:00] LABS: BUN Blood Urea Nitrogen 9 mg/dL (6-20); Bicarbonate 28 mEq/L (21-31); Glucose Level 87 mg/dL (65-120); Sodium Level 134 mEq/L (135-145)
[2018-03-05 06:01] LABS: Magnesium 1.8 mg/dL (1.8-2.5)
[2018-03-05] MEDS ORDERED: MAGNESIUM SULFATE 1 gm IVPB 1 GM/100 ML BAG IV ONE (07:35)
--- NOTE | 2018-03-05 08:27 | RAD REPORT ---
EXAM DESCRIPTION: Dominik Pa And Lat (2 Views)03/05/2018 6:24 am CLINICAL HISTORY: Cough COMPARISON: March 04 FINDINGS: A pneumothorax is not seen. Bilateral pulmonary nodules are again demonstrated. A small a mount of hemorrhage within the left lower lobe has mostly resolved. The heart is normal size
[2018-03-05 09:52] VITALS: BP 123/70; TEMP 99.8
--- NOTE | 2018-03-05 11:33 | P.DS ---
Admission Date: 03/01/18 Discharge Date: 03/05/18 Primary Care Provider: Dr. Manzo Disposition: ROUTINE DISCHARGE Discharge Condition: GOOD Reason for Admission: Hemoptysis Consultations: Pulmonary-Dr. Montgomery Procedures: Radiology assisted CT-guided fine-needle aspiration of lung the nodule Bronchoscopy: Lavage done. Pathology showed no malignant cells. Bronchial tissue and blood identified. CT scan: FINDINGS: A pulmonary embolus is not seen. A thoracic aortic aneurysm is not noted. A pleural effusion is not seen. A pericardial effusion is not seen. There are many bilateral pulmonary nodules varying in size from a few millimeters to 3.1 centimeters. A small amount of debris is present within a right lower lobe bronchus. Several anterior mediastinal lymph nodes are present measuring up to 2 centimeter short axis. Mild hilar lymphadenopathy is present. IMPRESSION: Negative for a pulmonary embolism. Multiple, bilateral pulmonary nodules probably representing metastatic disease. The primary may be testicle, bowel or kidneys. Lymphoma is another consideration Mediastinal lymphadenopathy likely represents additional disease. There is also mild hilar lymphadenopathy - Problems (1) Hemoptysis Onset Date: 03/02/18 Current Visit: Yes Status: Acute (2) Metastatic cancer to lung of unknown cell type Onset Date: 03/02/18 Current Visit: Yes Status: Suspected (3) Pulmonary nodules Current Visit: Yes Status: Acute (4) Mediastinal adenopathy Current Visit: Yes Status: Acute Brief History of Present Illness: 27-year-old male presented emergency room with cough and hemopytosis. The patient was evaluated in the emergency room. CT scan showed multiple bilateral pulmonary nodules with lymphadenopathy. The patient was admitted for further evaluation. Hospital Course: The patient was admitted and evaluated by pulmonology for in the hemoptysis. During the hospital stay this resolved. CT of the abdomen and pelvis was unremarkable. Pulmonology recommended bronchoscopy with lavage. This was done. Lavage showed no malignant cells. Blood cells and bronchial cells were noted. This was inconclusive. Therefore a CT guided radiology assisted fine- needle lung biopsy was done. Patient tolerated procedure. No pneumothorax was identified afterwards. Pathology shows inflammatory and atypical cells. This is suspicious for infectious versus inflammatory disease. Malignancy still in the differential. Further analysis will be sent to [facility]. Final results will come in 1 week. At discharge, the patient will follow up with pulmonology within 1 week to go over results. Patient is to monitor for further hemoptysis. If this persists he is to contact pulmonology for possible steroid treatment. 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 He is not fitted with a mask at work. No work until he is cleared by pulmonology after final results of lung biopsy. Vital Signs/Physical Exam: Temp Pulse Resp BP Pulse Ox 99.8 F 84 20 123/70 96 03/05/18 08:00 03/05/18 08:00 03/05/18 08:00 03/05/18 08:00 03/05/18 08:00 General: Alert, In no apparent distress, Oriented x3, Cooperative HEENT: Atraumatic, Mucous membr. moist/pink Neck: Supple Respiratory: Clear to auscultation bilaterally, Normal air movement Cardiovascular: Normal pulses, Regular rate/rhythm Gastrointestinal: Normal bowel sounds, Soft and benign, Non-distended, No tenderness, No masses, No rebound, No guarding Musculoskeletal: No erythema, No tenderness, No warmth Integumentary: No tenderness/swelling, No erythema, No warmth, No cyanosis Neurological: Normal speech, Normal strength at 5/5 x4 extr, Normal tone, Normal affect Laboratory Data at Discharge: WBC 9.5 K/uL (4.3-10.9) 03/05/18 04:42 Hgb 13.6 g/dL (13.6-17.9) 03/05/18 04:42 Hct 39.7 % (39.6-49.0) 03/05/18 04:42 Plt Count 308 K/uL (152-406) 03/05/18 04:42 PT 14.1 SECONDS (9.5-12.5) H 02/28/18 23:00 INR 1.19 02/28/18 23:00 APTT 30.4 SECONDS (24.3-36.9) 02/28/18 23:00 Sodium 134 mEq/L (135-145) L 03/05/18 04:42 Potassium 4.0 mEq/L (3.6-5.0) 03/05/18 04:42 BUN 9 mg/dL (6-20) 03/05/18 04:42 Creatinine 0.91 mg/dL (0.61-1.24) 03/05/18 04:42 Glucose 87 mg/dL (65-120) 03/05/18 04:42 Magnesium 1.8 mg/dL (1.8-2.5) 03/05/18 04:42 Total Bilirubin 0.8 mg/dL (0.3-1.2) 02/28/18 23:00 AST 17 IU/L (10-42) 02/28/18 23:00 ALT 13 IU/L (10-60) 02/28/18 23:00 Alkaline Phosphatase 76 IU/L (42-121) 02/28/18 23:00 Home Medications: NK [No Home Meds] 03/01/18 Patient Discharge Instructions: 1. Patient will need to follow up with pulmonology in 1 week to follow up this hospitalization. 2. Patient presented with hemoptysis. This resolved. Patient found to have bilateral pulmonary nodules. Bronchoscopy was done. Pathology inconclusive. CT-guided radiology assisted lung biopsy done. Pathology shows inflammatory and atypical cells. Final results will come in 1 week. No pneumothorax was identified after procedure. Patient will follow up with pulmonology within 1 week to go over results. Infectious/inflammatory is suspected versus malignancy. 3. Patient is to monitor for further hemoptysis. If this persists he is to contact pulmonology for possible steroid treatment. 4. No work until he is cleared by pulmonology after final results of lung biopsy. Diet: Regular Activity: Ad lovely Followup: Ty Montgomery MD [ACTIVE - CAN ADMIT] - 1 Week (Call for appointment) Time spent managing pt's care (in minutes): 55
[2018-03-05 12:47] VITALS: O2SAT 98
== END 2018-03-05 12:30 | disposition home or self-care (01) | DRG 167 ==
LOC: ER 22:35 → ERHOLD 03-01 02:09 → 2ND 03-01 03:38
PROVIDERS: ADMIT Hospitalist; ATTEND Family Medicine
PROC: 0BBJ3ZX Excision of Left Lower Lung Lobe, Percutaneous Approach, Diagnostic (ICD-10-PCS; 2018-03-01)
PROC: 0BB68ZX Excision of Right Lower Lobe Bronchus, Via Natural or Artificial Opening Endoscopic, Diagnostic (ICD-10-PCS; 2018-03-02)
PROC: 0B9F8ZX Drainage of Right Lower Lung Lobe, Via Natural or Artificial Opening Endoscopic, Diagnostic (ICD-10-PCS; principal; 2018-03-02 12:00)
DX: C34.90 Malignant neoplasm of unspecified part of unspecified bronchus or lung (principal); R04.2 Hemoptysis; R59.0 Localized enlarged lymph nodes; R91.8 Other nonspecific abnormal finding of lung field
CPT/HCPCS: 32405; 36415; 71045; 71046; 71275; 74177; 76000; 77012; 80048; 80076; 81003; 82105; 82378; 82962; 83735; 84702; 85025; 85610; 85730; 86850; 86900; 86901; 87015; 87102; 87116; 87206; 88108; 88305; 88312; 88333; 93005; 94640; 96361; 96374; 96375; 99285; C9113; J0696; J2250; J2310; J2370; J2405; J3010; J3475; J7030; Q9967

== ENCOUNTER 2024-10-27 18:21 | Emergency (ER) | payer SELFPAY ==
[2024-10-27 19:02] LABS: SARS-CoV-2 Antigen CONTROL BLUE LINE VIS/BG OK; SARS-CoV-2 Antigen Rapid Res Negative (Negative)
--- NOTE | 2024-10-27 20:05 | RAD REPORT ---
EXAMINATION: ONE VIEW CHEST XR CLINICAL INDICATION: Congestion;Dyspnea TECHNIQUE: Frontal chest projection is submitted. Examination is limited by patient positioning and t echnique. COMPARISON: 03/05/2018 FINDINGS: Small opacities present medial left lung base likely pneumonia. The heart is normal in size. No displ aced fractures identified. IMPRESSION: Medial left lung base pneumonia.
[2024-10-27] MEDS ORDERED: predniSONE 20 MG TAB ONE (20:54)
[2024-10-27] MEDS ORDERED: IPRATROPIUM BROM 0.5MG/2.5ML ONE (20:54)
[2024-10-27] MEDS ORDERED: ALBUTEROL 2.5 MG/3 ML NEB SOL ONE (20:54)
[2024-10-27] MEDS ORDERED: CEFTRIAXONE 1000 MG/VIAL ONE (21:14)
[2024-10-27] MEDS ORDERED: AZITHROMYCIN 250 MG TAB ONE (21:14)
[2024-10-27] MEDS ORDERED: LIDOCAINE 1% MPF 2 ML AMPULE ONE (21:15)
--- NOTE | 2024-10-27 21:38 | ER ---
Nurse's Notes [facility] Name: Todd Cortez Age: 34 yrs Sex: Male : 1990 Arrival Date: 10/27/2024 Time: 18:21 Bed 12 Private MD: Diagnosis: Pneumonia, unspecified organism Presentation: 10/27 18:30 Chief complaint: Cough, congestion, fever, body aches, and SOB x 1 week. Coronavirus hb screen: At this time, the client does not indicate any symptoms associated with coronavirus-19. Ebola Screen: No symptoms or risks identified at this time. Initial Sepsis Screen: Does the patient meet any 2 criteria? No. Patient's initial sepsis screen is negative. Does the patient have a suspected source of infection? No. Patient's initial sepsis screen is negative. Risk Assessment: Do you want to hurt yourself or someone else? Patient reports no desire to harm self or others. Onset of symptoms was October 21, 2024. 18:30 Method Of Arrival: Ambulatory hb 18:30 Acuity: LIDIA 3 hb Triage Assessment: 21:57 General: Appears in no apparent distress. comfortable, Behavior is calm, cooperative. cm10 Pain: Denies pain. Neuro: No deficits noted. Level of Consciousness is awake, alert, obeys commands, Oriented to person, place, time, situation, Appropriate for age. Respiratory: No deficits noted. Reports cough that is Airway is patent Respiratory effort is even, unlabored, Respiratory pattern is regular, symmetrical. Derm: No deficits noted. Skin is healthy with good turgor. Musculoskeletal: No deficits noted. Range of motion: intact in all extremities. Historical: - Allergies: 18:32 No Known Allergies; hb - Home Meds: 18:32 None [Active]; hb - PMHx: 18:32 Hodgkin's Lymphoma; hb - PSHx: 18:32 Lung resection - Left; hb - Immunization history:: Adult Immunizations up to date. - Infectious Disease History:: Denies. - Social history:: Smoking status: Patient denies any tobacco usage or history of. Screenin:26 [facility] ED Fall Risk Assessment (Adult) History of falling in the last 3 months, ha1 including since admission No falls in past 3 months (0 pts) Confusion or Disorientation No (0 pts) Intoxicated or Sedated No (0 pts) Impaired Gait No (0 pts) Mobility Assist Device Used No (0 pt) Altered Elimination No (0 pt) Score/Fall Risk Level 0 - 2 = Low Risk Oriented to surroundings, Maintained a safe environment, Educated pt \T\ family on fall prevention, incl call for assistance when getting out of bed. Abuse screen: Denies threats or abuse. Denies injuries from another. Nutritional screening: No deficits noted. Tuberculosis screening: No symptoms or risk factors identified. Assessment: 21:25 Reassessment: Patient and/or family updated on plan of care and expected duration. Pain ha1 level reassessed. Patient is alert, oriented x 3, equal unlabored respirations, skin warm/dry/pink. Patient denies pain at this time. Vital Signs: 18:30 BP 146 / 89; Pulse 77; Resp 18; Temp 98.7; Pulse Ox 99% on R/A; Weight 52.16 kg; Height hb 5 ft. 6 in. ; Pain 0/10; 21:26 BP 120 / 81; Pulse 85; Resp 18 S; Pulse Ox 100% on R/A; ha1 21:56 BP 134 / 71; Pulse 98; Resp 16; Pulse Ox 97% ; cm10 18:30 Body Mass Index 18.56 (52.16 kg, 167.64 cm) hb 18:30 Pain Scale: Adult hb ED Course: 18:24 Patient arrived in ED. mg5 18:32 Triage completed. hb 18:33 Arm band placed on. hb 18:39 Nadia Wynn FNP-C is [facility]. kb 18:39 Alexander Liu MD is Attending Physician. kb 19:58 Chest Single View XRAY In Process Unspecified. EDMS 21:56 Patient has correct armband on for positive identification. Provided Education on: cm10 Follow-up instructions. Pulse ox on. NIBP on. 21:56 No provider procedures requiring assistance completed. Patient did not have IV access cm10 during this emergency room visit. Administered Medications: 21:23 Drug: predniSONE PO 40 mg PO once Route: PO; ha1 21:57 Follow up: Response: No adverse reaction cm10 21:23 Drug: Albuterol Inhalation 2.5 mg Inhalation once Route: Inhalation; ha1 21:23 Drug: Ipratropium Inhalation Aerosol 0.5 mg Inhalation once Route: Inhalation; ha1 21:23 Drug: Rocephin (cefTRIAXone) IM 1 grams IM once Route: IM; Site: right ventrogluteal; ha1 21:57 Follow up: Response: No adverse reaction cm10 21:23 Drug: AZITHromycin PO 500 mg PO once Route: PO; ha1 21:57 Follow up: Response: No adverse reaction cm10 Medication: 21:57 VIS not applicable for this client. cm10 Outcome: 21:37 Discharge ordered by MD. english 21:56 Discharged to home ambulatory, with family, 10 21:56 Condition: good 21:56 Discharge instructions given to patient, family, Instructed on discharge instructions, follow up and referral plans. medication usage, Demonstrated understanding of instructions, follow-up care, medications, Prescriptions given X 3, :57 Patient left the ED. cm10 Signatures: Dispatcher [employer] EDMS Nadia Wynn, DYEING MACHINE FEEDER-C DYEING MACHINE FEEDER-CkFrancy Marshall RN RN hb Ayala, Heidy, RN RN ha1 Ca Ibarra RN RN cm10 Sandy Lincoln 5
--- NOTE | 2024-10-27 21:38 | EDPHYS ---
Physician Documentation [facility] Name: Todd Cortez Age: 34 yrs Sex: Male : 1990 Arrival Date: 10/27/2024 Time: 18:21 Bed 12 Private MD: ED Physician Alexander Liu HPI: 10/27 20:00 This 34 yrs old Male presents to ER via Ambulatory with complaints of Shortness Of kb Breath, Cough, Fever. 20:00 Pt is a 34 year old male who presents for headache, fever, cough, fatigue, malaise that kb started one week ago. TMAX 103. Concerned about pneumonia. Denies runny nose, nasal congestion, n/v/d. . Historical: - Allergies: 18:32 No Known Allergies; hb - Home Meds: 18:32 None [Active]; hb - PMHx: 18:32 Hodgkin's Lymphoma; hb - PSHx: 18:32 Lung resection - Left; hb - Immunization history:: Adult Immunizations up to date. - Infectious Disease History:: Denies. - Social history:: Smoking status: Patient denies any tobacco usage or history of. ROS: 20:02 Constitutional: As per HPI kb Exam: 21:38 Constitutional: This is a well developed, well nourished patient who is awake, alert, kb and in no acute distress. Head/Face: Normocephalic, atraumatic. ENT: Moist Mucous membranes Cardiovascular: Regular rate Abdomen/GI: Soft, non-tender. No distention Skin: Warm, dry with normal turgor. Normal color. MS/ Extremity: Pulses equal, no cyanosis. Neurovascular intact. Full, normal range of motion. Neuro: Awake and alert, GCS 15, oriented to person, place, time, and situation. 21:38 Respiratory: the patient does not display signs of respiratory distress, Respirations: normal, Breath sounds: wheezing: expiratory that is mild, is heard in the left lower lobe and left posterior lower lobe, Vital Signs: 18:30 BP 146 / 89; Pulse 77; Resp 18; Temp 98.7; Pulse Ox 99% on R/A; Weight 52.16 kg; Height hb 5 ft. 6 in. ; Pain 0/10; 21:26 BP 120 / 81; Pulse 85; Resp 18 S; Pulse Ox 100% on R/A; ha1 21:56 BP 134 / 71; Pulse 98; Resp 16; Pulse Ox 97% ; cm10 18:30 Body Mass Index 18.56 (52.16 kg, 167.64 cm) hb 18:30 Pain Scale: Adult hb MDM: 18:39 Medical Screening Exam initiated kb 21:38 Differential diagnosis: flu, covid, uri, pneumonia. Data reviewed: vital signs, nurses kb notes. Test considered but Not performed: Labs: cbc, cmp considered but pt is well appearing, resp even and unlabored, vitals wnl. Pt in agreement with outpatient antibiotics and follow up. Will return for worsening symptoms. Historians other than the Patient: Spouse/Significant Other: spouse. Counseling: I had a detailed discussion with the patient and/or guardian regarding the historical points, exam findings, and any diagnostic results supporting the discharge/admit diagnosis, lab results, radiology results, the need for outpatient follow up, a family practitioner, to return to the emergency department if symptoms worsen or persist or if there are any questions or concerns that arise at home. 10/27 18:33 Order name: Flu; Complete Time: 19:15 hb 10/27 18:33 Order name: SARS RAPID; Complete Time: 19:03 hb 10/27 18:33 Order name: Chest Single View XRAY; Complete Time: 20:06 hb Administered Medications: 21:23 Drug: predniSONE PO 40 mg PO once Route: PO; ha1 21:57 Follow up: Response: No adverse reaction cm10 21:23 Drug: Albuterol Inhalation 2.5 mg Inhalation once Route: Inhalation; ha1 21:23 Drug: Ipratropium Inhalation Aerosol 0.5 mg Inhalation once Route: Inhalation; ha1 21:23 Drug: Rocephin (cefTRIAXone) IM 1 grams IM once Route: IM; Site: right ventrogluteal; ha1 21:57 Follow up: Response: No adverse reaction cm10 21:23 Drug: AZITHromycin PO 500 mg PO once Route: PO; ha1 21:57 Follow up: Response: No adverse reaction cm10 Disposition Summary: 10/27/24 21:37 Discharge Ordered Notes: Location: Home kb Condition: Stable kb Diagnosis - Pneumonia, unspecified organism kb Followup: kb - With: Emergency Department - When: As needed - Reason: Worsening of condition Followup: kb - With: Private Physician - When: 2 - 3 days - Reason: Recheck today's complaints, Continuance of care, Re-evaluation by your physician Discharge Instructions: - Discharge Summary Sheet kb - Community-Acquired Pneumonia, Adult, [id number] kb Forms: - Medication Reconciliation Form kb - Antibiotic Education kb - Prescription Opioid Use kb - Patient Portal Instructions kb - Leadership Thank You Letter kb Prescriptions: - albuterol sulfate 90 mcg/actuation Inhalation HFA Aerosol Inhaler - inhale 2 inhalation INHALATION route every 4-6 hours As needed; 1 Unspecified; kb Refills: 0, Product Selection Permitted - Prednisone 20 mg Oral Tablet - take 1 tablet ORAL route once daily for 5 days; 5 tablet; Refills: 0, Product kb Selection Permitted - Zithromax 500 mg Oral Tablet - take 1 tablet ORAL route once daily for 5 days; 5 tablet; Refills: 0, Product kb Selection Permitted Signatures: Dispatcher [employer] Nadia Alba, QUALITY ASSURANCE TECH-C RAY-Francy Gan RN RN Alia Knight RN RN ha1 Ca Ibarra RN cm10
[2024-10-27 22:37] VITALS: TEMP 98.7
[2024-10-27 22:40] VITALS: BP 134/71; O2SAT 97
== END 2024-10-27 21:57 | disposition home or self-care (01) ==
LOC: ER 18:21
DX: J18.9 Pneumonia, unspecified organism (principal); Z11.52 Encounter for screening for COVID-19
CPT/HCPCS: 36415; 71045; 87804; 87811; 96372; 99285; J0696; J7512; J7613; J7644

== ENCOUNTER 2024-11-20 17:23 | Emergency (ER) | payer SELFPAY ==
--- NOTE | 2024-11-20 19:10 | RAD REPORT ---
EXAM: Chest Pa And Lat (2 Views) HISTORY: COUGH COMPARISON: 10/27/2024 FINDINGS: LUNGS/PLEURA: The lungs are clear. No pleural effusions or pneumothorax. No pulmonary edema. MEDIASTINUM: The mediastinal silhouette is within normal limits. CARDIAC: The cardiac silhouette is within normal limits. UPPER ABDOMEN: No significant abnormality. BONES: No acute fracture. LINES/TUBES/OTHER: N/A IMPRESSION: No evidence of acute cardiopulmonary disease.
--- NOTE | 2024-11-20 19:13 | EDPHYS ---
Physician Documentation [facility] Name: Todd Cortez Age: 34 yrs Sex: Male : 1990 Arrival Date: 11/20/2024 Time: 17:23 Bed 11 Private MD: ZULEMA Physician Alexander Liu HPI: 11/20 17:47 This 34 yrs old Male presents to ER via Ambulatory with complaints of Chest Tightness. cp 17:47 The patient or guardian reports cough. cp 17:47 Onset: The symptoms/episode began/occurred last month, since . cp 17:47 Associated signs and symptoms: Pertinent positives: intermittent chest tightness, cp Pertinent negatives: chest pain, fever, vomiting, hemoptysis, weight loss. Historical: - Allergies: 17:31 No Known Allergies; iw - Home Meds: 17:31 inhaler, assist devices, accessories [Active]; iw - PMHx: 17:31 Hodgkin's Lymphoma; iw - PSHx: 17:31 Lung resection - Left; iw - Immunization history:: Adult Immunizations not up to date. - Infectious Disease History:: Denies. - Social history:: Smoking status: Patient denies any tobacco usage or history of. ROS: 17:50 Constitutional: Negative for body aches, chills, fever, poor PO intake, cp 17:50 Eyes: Negative for injury, pain, redness, and discharge, cp 17:50 ENT: Negative for drainage from ear(s), ear pain, sore throat, difficulty swallowing, difficulty handling secretions, 17:50 Cardiovascular: Negative for chest pain, edema, palpitations, 17:50 Respiratory: Positive for cough, Negative for hemoptysis, shortness of breath, wheezing, 17:50 Abdomen/GI: Negative for abdominal pain, vomiting, diarrhea, constipation, 17:50 Neuro: Negative for altered mental status, dizziness, headache, weakness, 17:50 All other systems are negative, Exam: 17:55 Constitutional: The patient appears in no acute distress, alert, awake, cp non-diaphoretic, non-toxic, well developed, well nourished, 17:55 Head/Face: Normocephalic, atraumatic. cp 17:55 Eyes: Periorbital structures: appear normal, Conjunctiva: normal, no exudate, no injection, Sclera: no appreciated abnormality, Lids and lashes: appear normal, bilaterally, 17:55 ENT: External ear(s): are unremarkable, Nose: is normal, Mouth: Lips: moist, Oral mucosa: pink and intact, moist, Posterior pharynx: Airway: no evidence of obstruction, patent, 17:55 Chest/axilla: Inspection: normal, Palpation: is normal, no crepitus, no tenderness, 17:55 Cardiovascular: Rate: normal, Rhythm: regular, Edema: is not appreciated, JVD: is not appreciated, 17:55 Respiratory: the patient does not display signs of respiratory distress, Respirations: normal, no use of accessory muscles, no retractions, labored breathing, is not present, Breath sounds: are clear throughout, no decreased breath sounds, no stridor, no wheezing, 17:55 Abdomen/GI: Inspection: abdomen appears normal, Palpation: abdomen is soft and non-tender, in all quadrants, 17:55 Back: pain, is absent, ROM is normal, 17:55 Neuro: Orientation: to person, place \T\ time. Mentation: is normal, Vital Signs: 17:30 BP 123 / 73; Pulse 82; Resp 16; Temp 98(TE); Pulse Ox 98% on R/A; Weight 49.9 kg; iw Height 5 ft. 6 in. ; Pain 0/10; 19:27 BP 121 / 71; Pulse 84; Resp 18; Pulse Ox 99% ; vc1 17:30 Body Mass Index 17.76 (49.90 kg, 167.64 cm) iw 17:30 Pain Scale: Adult iw MDM: 17:35 Medical Screening Exam initiated bucky 18:00 Differential Diagnosis: Bronchitis Influenza Pneumonia Other carcinoma, pulmonary cp embolism, GERD. 19:10 Independent interpretation of the following test(s) in the Emergency Department X-Ray: cp My interpretation is images of chest negative for focal pneumonia. 19:12 Data reviewed: vital signs, nurses notes, radiologic studies, plain films, and as a cp result, I will discharge patient. 19:12 Care significantly affected by the following chronic conditions: Cancer. Counseling: I cp had a detailed discussion with the patient and/or guardian regarding the historical points, exam findings, and any diagnostic results supporting the discharge/admit diagnosis, radiology results, the need for outpatient follow up, a family practitioner, to return to the emergency department if symptoms worsen or persist or if there are any questions or concerns that arise at home. 11/20 17:46 Order name: XRAY Chest Pa And Lat (2 Views); Complete Time: 19:11 cp 11/20 19:11 Interpretation: Report reviewed. cp Administered Medications: No medications were administered Disposition Summary: 11/20/24 19:13 Discharge Ordered Notes: Location: Home cp Problem: an ongoing problem cp Symptoms: have improved cp Condition: Stable cp Diagnosis - Cough cp Followup: cp - With: Private Physician - When: 5 - 6 days - Reason: symptoms continue Discharge Instructions: - Discharge Summary Sheet cp - Cough, Adult cp Forms: - Medication Reconciliation Form cp - Antibiotic Education cp - Prescription Opioid Use cp - Patient Portal Instructions cp - Leadership Thank You Letter cp Prescriptions: - albuterol sulfate 90 mcg/actuation Inhalation HFA Aerosol Inhaler - inhale 1 inhalation INHALATION route every 4 to 6 hours as needed for cp bronchospasm; administer via ventilator; 1 unit; Refills: 0, Product Selection Permitted - Tessalon Perles 100 mg Oral Capsule - take 1 capsule ORAL route every 8 hours As needed; 15 capsule; Refills: 0, cp Product Selection Permitted Addendum: 11/25/2024 12:48 Co-signature as Attending Physician, Alxeander Liu MD I agree with the assessment and c rubin plan of care. Signatures: Dispatcher [employer] Alexander Guillory MD MD cha Williams, Irene, RN RN Alexander Dodson PA PA cp
--- NOTE | 2024-11-20 19:13 | ER ---
Nurse's Notes [facility] Name: Todd Cortez Age: 34 yrs Sex: Male : 1990 Arrival Date: 11/20/2024 Time: 17:23 Bed 11 Private MD: Diagnosis: Cough Presentation: 11/20 17:30 Chief complaint: Patient states: had pneumonia before thanksgiving, the cough never iw went away , the cough got worse over past two days. Coronavirus screen: Client presents with at least one sign or symptom that may indicate coronavirus-19. Ebola Screen: No symptoms or risks identified at this time. Initial Sepsis Screen: Does the patient meet any 2 criteria? No. Patient's initial sepsis screen is negative. Does the patient have a suspected source of infection? No. Patient's initial sepsis screen is negative. Risk Assessment: Do you want to hurt yourself or someone else? Patient reports no desire to harm self or others. Onset of symptoms was November 18, 2024. 17:30 Method Of Arrival: Ambulatory iw 17:30 Acuity: LIDIA 4 iw Triage Assessment: 17:32 General: Appears in no apparent distress. Behavior is calm, cooperative. Pain: Denies iw pain. Cardiovascular: Patient's skin is warm and dry. Historical: - Allergies: 17:31 No Known Allergies; iw - Home Meds: 17:31 inhaler, assist devices, accessories [Active]; iw - PMHx: 17:31 Hodgkin's Lymphoma; iw - PSHx: 17:31 Lung resection - Left; iw - Immunization history:: Adult Immunizations not up to date. - Infectious Disease History:: Denies. - Social history:: Smoking status: Patient denies any tobacco usage or history of. Screenin:34 [facility] ED Fall Risk Assessment (Adult) History of falling in the last 3 months, iw including since admission No falls in past 3 months (0 pts) Confusion or Disorientation No (0 pts) Intoxicated or Sedated No (0 pts) Impaired Gait No (0 pts) Mobility Assist Device Used No (0 pt) Altered Elimination No (0 pt) Score/Fall Risk Level 0 - 2 = Low Risk Oriented to surroundings. 19:28 Abuse screen: Denies threats or abuse. Nutritional screening: No deficits noted. vc1 Tuberculosis screening: No symptoms or risk factors identified. Assessment: 17:45 General: Appears in no apparent distress. Behavior is calm, cooperative. Pain: iw Complains of pain in chest Pain does not radiate. Pain began. Neuro: Level of Consciousness is awake, alert, obeys commands, Oriented to person, place, time, situation, Moves all extremities. Cardiovascular: Patient's skin is warm and dry. Respiratory: Respiratory effort is even, unlabored. GI: Abdomen is non-distended. Vital Signs: 17:30 BP 123 / 73; Pulse 82; Resp 16; Temp 98(TE); Pulse Ox 98% on R/A; Weight 49.9 kg; iw Height 5 ft. 6 in. ; Pain 0/10; 19:27 BP 121 / 71; Pulse 84; Resp 18; Pulse Ox 99% ; vc1 17:30 Body Mass Index 17.76 (49.90 kg, 167.64 cm) iw 17:30 Pain Scale: Adult iw ED Course: 17:25 Patient arrived in ED. ra3 17:30 Alexander Vaz PA is PHCP. cp 17:30 Alexander Liu MD is Attending Physician. cp 17:31 Triage completed. iw 17:32 Arm band placed on. iw 18:33 Nella Salas RN is Primary Nurse. iw 18:52 XRAY Chest Pa And Lat (2 Views) In Process Unspecified. EDMS 19:28 Placed in gown. Bed in low position. Call light in reach. Provided Education on: cough. vc1 Client placed on continuous cardiac and pulse oximetry monitoring. NIBP monitoring applied. monitoring engineer on. Pulse ox on. NIBP on. 19:28 No provider procedures requiring assistance completed. Patient did not have IV access vc1 during this emergency room visit. Patient maintains SpO2 saturation greater than 95% on room air. Administered Medications: No medications were administered Medication: 18:34 VIS not applicable for this client. iw Outcome: 19:13 Discharge ordered by . cp 19:28 Discharged to home ambulatory, vc1 19:28 Condition: stable 19:28 Discharge instructions given to patient, Instructed on discharge instructions, follow up and referral plans. medication usage, Demonstrated understanding of instructions, follow-up care, medications, Prescriptions given X 2, 19:29 Patient left the ED. vc1 Signatures: Dispatcher [employer] EDNJ Nella Salas RN Alexander Franklin PA PA cp Calcote, Vanessa, RN RN vc1 Evonne Dias ra3 Corrections: (The following items were deleted from the chart) 17:34 17:30 Resp 16bpm; 49.9 kg; Height 5 ft. 6 in.; BMI: 17.7; Pain 0/10, Adult; lily bautista
[2024-11-20 19:58] VITALS: TEMP 98
[2024-11-20 19:59] VITALS: BP 121/71; O2SAT 99
== END 2024-11-20 19:29 | disposition home or self-care (01) ==
LOC: ER 17:23
DX: R05.9 Cough, unspecified (principal); R07.89 Other chest pain
CPT/HCPCS: 71046; 99284